=== PATIENT | female | born 1950 | race Caucasian/White ===

== ENCOUNTER → 2017-05-03 13:22 | Outpatient (CLI) | payer BC, SELFPAY ==
--- NOTE | 2017-05-03 13:28 | HPBI_ITS ---
MAMMOGRAPHY - BILATERAL SCREENING REASON FOR EXAM: Female, 67 years old. Routine annual screening examination. PERTINENT HISTORY: Non-contributory. TECHNIQUE: Digital bilateral breast kulwinder (3D mammographic acquisition) in the CC and MLO projections. 2-D mediolateral oblique (MLO) and craniocaudad (CC) views of both breasts were obtained. CAD: Full Field Digital Mammography with Computer Added Detection was performed. COMPARISON: Comparison is made with prior study dated December 23, 2015 and September 02, 2013. FINDINGS: Breast Composition: The breasts are heterogeneously dense, which may obscure small masses. There are no dominant masses or suspicious calcifications. No other significant abnormalities are identified. There has been no significant change since the prior study. HPBI/SCREENING MAMM (CAD), BILAT IMPRESSION: Stable bilateral screening mammogram. Yearly follow-up mammogram recommended. (A) ASSESSMENT CATEGORY: BIRADS Category 1: Negative. A letter regarding these results will be sent to the patient by the facility within 30 days. Approximately 10% of breast cancers are not detected by mammography. A normal mammogram should not delay biopsy of a clinically suspicious abnormality. [id number] Electronically Signed: Dickson Daley MD at 14:13 EST Tel [phone], Service support ,
== END ==
PROVIDERS: Family Provider Family Medicine; PCP Family Medicine; Visit Provider Obstetrics & Gynecology
DX: Z12.31 Encounter for screening mammogram for malignant neoplasm of breast (principal)
CPT/HCPCS: 77063; 77067

== ENCOUNTER → 2017-05-03 14:57 | Outpatient (CLI) | payer BC, SELFPAY ==
[2017-05-07 03:08] LABS: HSV 1 By PCR Negative (Negative)
[2017-05-07 07:17] LABS: HSV 2 By PCR Positive (Negative)
== END ==
PROVIDERS: Visit Provider Obstetrics & Gynecology
DX: N76.6 Ulceration of vulva (principal)
CPT/HCPCS: 87529

== ENCOUNTER → 2017-07-06 16:01 | Outpatient (CLI) | payer BC, SELFPAY ==
[2017-07-06 18:08] LABS: Erythrocyte Sedimentation Rate 15 mm/hr (0-30)
[2017-07-06 18:37] LABS: CRP < 2.90 mg/L (0.0-3.0); Rheumatoid Factor < 10.0 IU/mL (<15)
[2017-07-08 15:32] LABS: ANTINUCLEAR ANTIBODIES DIRECT Positive (Negative)
== END ==
PROVIDERS: Family Provider Family Medicine; PCP Family Medicine; Visit Provider Internal Medicine Pulmonary Disease
DX: R07.9 Chest pain, unspecified (principal)
CPT/HCPCS: 36415; 85652; 86038; 86140; 86431

== ENCOUNTER → 2018-06-02 15:06 | Outpatient (CLI) | payer MEDICARE, BC, SELFPAY ==
--- NOTE | 2018-06-02 15:14 | BI_ITS ---
MAMMOGRAPHY - BILATERAL SCREENING 3-D RUSS SYNTHESIS REASON FOR EXAM: Female, 68 years old. Bilateral Screening 3-D tomosynthesis PERTINENT HISTORY: History of right excisional biopsy in 1983. TECHNIQUE: 2-D mammograms and 3-D Russ synthesis of the breast (s) were performed. CAD was performed. COMPARISON: May 03, 2017, January 02, 2016 FINDINGS: The breast composition is heterogeneously dense that can obscure small breast masses. Scattered benign calcifications are stable. There are stable lymph nodes. No dense spiculated masses or suspicious microcalcifications are identified. No architectural distortion is identified. There is no skin thickening or retraction. There has been no significant change since the prior study. BI/SCREENING MAMM (CAD), BILAT IMPRESSION: No mammographic signs of malignancy. Routine yearly mammograms recommended. ASSESSMENT CATEGORY: BIRADS Category 2: Benign. A letter regarding these results will be sent to the patient by the facility within 30 days. FOLLOW UP RECOMMENDATION: Yearly follow up mammogram recommended. (A) Approximately 10% of breast cancers are not detected by mammography. A normal mammogram should not delay biopsy of a clinically suspicious abnormality. Electronically Signed: Mohinder Warren MD at 17:03 EDT , Service support ,
--- NOTE | 2018-06-02 15:21 | BD_ITS ---
STUDY: DUAL ENERGY X-RAY ABSORPTIOMETRY / DXA REASON FOR EXAM: Female, 68 years old. The patient is postmenopausal. Loss of height. TECHNIQUE: Bone Mineral Density (BMD) measurements of lumbar spine and bilateral hips were obtained. COMPARISON: Comparison is made with prior study dated April 28, 2016. FINDINGS: Lumbar Spine (L1-L4): g/cm2 (0.972) / T-score (-1.7) / Z-score (-0.1) Findings are suggestive of osteopenia with a moderate fracture risk. Increased thoracic kyphosis. Loss of height of the mid dorsal vertebrae. Left Femur Total: g/cm2 (0.847) / T-score (-1.3) / Z-score (0.1) Left Femoral Neck: g/cm2 (0.819) / T-score (-1.6) / Z-score (0.0) Right Femur Total: g/cm2 (0.853) / T-score (-1.2) / Z-score (0.1) Right Femoral Neck: g/cm2 (0.844) / T-score (-1.4) / Z-score (0.2) The T-Scores on the most recent prior examination were: Lumbar Spine (L1-L4): There has been improvement of bone density since the previous examination. Left Femur Total: which represents an improvement of 3.3%. Right Femur Total: which represents an improvement of 6.6%. BD/Dexa Bone Density Study IMPRESSION: The patient is considered osteopenic as outlined below according to World Carlito Organization (WHO) criteria with a moderate fracture risk. There has been improvement of bone density since the previous examination. Reference Information: The T-score is the number of standard deviations above or below the standard which is normal for young adults at their peak bone mineral density. The World Health Organization (WHO) interprets the T-scores as follows: Above -1 Normal bone density Between -1 and -2.5 Osteopenia Equal to / or below -2.5 Osteoporosis As a practical clinical guideline, osteopenia may be graded as follows: Mild -1 through -1.5 Moderate -1.6 through -2.0 Severe -2.1 through -2.4 The Z-score is the number of standard deviations above or below age-matched controls. A Z-score of less than -1.5 would be considered abnormal. References: 1. NIH Osteoporosis and Related Bone Diseases http://www.osteo.org 2. International Society for Clinical Densitometry http://www.iscd.org 3. National Osteoporosis Foundation http://www.nof.org Electronically Signed: Dickson Daley, at 12:57 EDT , Service support ,
== END ==
PROVIDERS: Family Provider Family Medicine; PCP Family Medicine; Visit Provider Family Medicine
DX: M85.80 Other specified disorders of bone density and structure, unspecified site (principal); Z78.0 Asymptomatic menopausal state; Z12.31 Encounter for screening mammogram for malignant neoplasm of breast
CPT/HCPCS: 77063; 77067; 77080

== ENCOUNTER → 2019-08-24 13:48 | Outpatient (CLI) | payer MEDICARE, BC, SELFPAY ==
--- NOTE | 2019-08-24 13:52 | BI_ITS ---
MAMMOGRAPHY - BILATERAL SCREENING REASON FOR EXAM: Female, 69 years old. Routine annual screening examination. PERTINENT HISTORY: Non-contributory. Remote right excisional breast biopsy. TECHNIQUE: Digital bilateral breast russ (3D mammographic acquisition) in the CC and MLO projections. 2-D mediolateral oblique (MLO) and craniocaudad (CC) views of both breasts were obtained. CAD: Full Field Digital Mammography with Computer Added Detection was performed. COMPARISON: Comparison is made with prior study date June 02, 2018 and May 03, 2017. FINDINGS: Breast Composition: The breasts are extremely dense, which lowers the sensitivity of mammography. There are no dominant masses or suspicious calcifications. No other significant abnormalities are identified. There has been no significant change since the prior study. BI/SCREEN MAMM (CAD) W/RUSS BILAT IMPRESSION: Stable bilateral screening mammogram. Yearly follow-up mammogram recommended. (A) ASSESSMENT CATEGORY: BIRADS Category 1: Negative. A letter regarding these results will be sent to the patient by the facility within 30 days. Approximately 10% of breast cancers are not detected by mammography. A normal mammogram should not delay biopsy of a clinically suspicious abnormality. [id number] Electronically Signed: Dickson Daley, at 15:06 EDT , Service support ,
== END ==
PROVIDERS: PCP Family Medicine; Referring Provider Obstetrics & Gynecology; Visit Provider Obstetrics & Gynecology
DX: Z12.31 Encounter for screening mammogram for malignant neoplasm of breast (principal)
CPT/HCPCS: 77063; 77067

== ENCOUNTER → 2019-11-02 17:02 | Outpatient (CLI) | payer MEDICARE, BC, SELFPAY ==
[2019-11-08 20:30] LABS: HPV APTIMA, High Risk Positive (Negative); HPV Reflexed? YES, CHARGE PATIENT
== END ==
PROVIDERS: PCP Family Medicine; Referring Provider Student in an Organized Health Care Education/Training Program; Visit Provider Student in an Organized Health Care Education/Training Program
DX: Z12.4 Encounter for screening for malignant neoplasm of cervix (principal)
CPT/HCPCS: 87624; 88175; G0145

== ENCOUNTER → 2019-12-11 15:03 | Outpatient (CLI) | payer MEDICARE, BC, SELFPAY ==
--- NOTE | 2019-12-11 | IMM_PTH ---
PATIENT: ASHISH COPELAND LOC: [facility] U#:[id number] AGE/SX: 74/F ROOM: RE12/11/[address]: Dr. Loida Fleming DO : 1950 BED: DIS: SPEC #: [id number] RECD: 12/13/19 13:20 STATUS: KD REQ #: [id number] SHIREEN: 12/11/19 00:[address]: Loida Fleming DEPT: IMMUNOHISTOCHEMISTRY RECD BY: Amanda Briceno ENTERED: 12/13/19 13:21 SP TYPE: IMMUNO OTHR DR: Dr. Jose Joy MD Tissues: A - Uterine cervix, NOS B - Endocervical Procedures: p16 (initial) KI-67 (add) PHYSICIAN & [place] [phone] SPECIMEN INFORMATION: Tissue Source: A - Cervical biopsy 11 o'clock, B - [facility] Clinical Info: ASCUS Specimen Number: [id number] A & B CPT code: 90356 x2, 28582 x2 METHODOLOGY: Deparaffinized sections of prefer/formalin-fixed tissue or PAP/DQ stained slides are incubated with monoclonal/polyclonal antibodies/oligonucleotide probes. Localization is made via biotin free immunoperoxidase method. Appropriate controls are performed and reacted as expected. Results on target cell population are indicated in the following table: RESULTS: ANTIBODY / CLONE RESULT Block A P16 (E6H4) positive, rare Ki-67 (30-9) negative Block B P16 (E6H4) positive, rare Ki-67 (30-9) negative These tests were developed and their performance characteristics determined by [facility]. They may not have been cleared or approved by the U.S. Food and Drug Administration. The FDA has determined that such clearance or approval is not necessary. The above immunohistochemical/dualISH markers are ordered and reviewed by the Pathologist. INTERPRETATION: A. Cervix at 11 o'clock, biopsy: Focal HPV change suspected. B. Endocervix, curettage: Focal HPV change suspected. AM:zak 12/14/19
--- NOTE | 2019-12-11 14:35 | CER_PTH ---
PATIENT: ASHISH COPELAND [facility] U#:[id number] AGE/SX: 74/F ROOM: RE12/11/[address]: Dr. Loida Fleming DO : 1950 BED: DIS: SPEC #: [id number] RECD: 12/11/19 16:25 STATUS: KD PA #: [id number] SHIREEN: 12/11/19 14:[address]: Loida Fleming DEPT: SURGICAL PATHOLOGY RECD BY: Leah Burleson ENTERED: 12/12/19 09:21 SP TYPE: CERV OTHR DR: Dr. Jose Joy MD Tissues: A - Uterine cervix, NOS B - Endocervical Procedures: Surgery Specimen Level IV HEADER OPERATION: Colposcopy PRE-OP DIAGNOSIS: ASCUS; cannot exclude HGSIL TISSUE SUBMITTED: A - Cervical biopsy 11 o'clock, B - ECC MICROSCOPIC DIAGNOSIS A. Cervix at 11 o'clock, biopsy: Minimal chronic inflammation. Focal HPV change suspected. See comment. B. Endocervix, curettings: Scant strips of benign squamous mucosa. Focal HPV change suspected. See comment. AM:zak 12/13/19 COMMENT A & B. Results from immunohistochemistry ([id number]) for surrogate HPV marker (p16) will be reported separately. MICROSCOPIC DESCRIPTION Slides are reviewed. GROSS DESCRIPTION A - Received in fixative is one container labeled with the patient's name and designated cervical biopsy. The specimen consists of one irregular fragment of light miller soft tissue that measures 0.2 x 0.2 x 0.1 cm. The specimen is totally submitted in one cassette. B - Received in fixative is one container labeled with the patient's name and designated ECC. The specimen consists of a scant amount of soft tissue. The specimen is totally submitted for cell block preparation. / AM:zak 12/12/19 TC:5 CPT: 57712 x2
== END ==
PROVIDERS: PCP Family Medicine; Visit Provider Student in an Organized Health Care Education/Training Program
DX: R30.0 Dysuria (principal); R89.7 Abnormal histological findings in specimens from other organs, systems and tissues
CPT/HCPCS: 87086; 87088; 88305; 88341; 88342

== ENCOUNTER 2021-03-25 11:39 | Outpatient (CLI) | payer MEDICARE, BC, SELFPAY ==
[2021-03-28 22:06] LABS: HPV Genotype 16, Aptima Negative (Negative)
[2021-03-29 16:11] LABS: HPV APTIMA, High Risk Positive (Negative); HPV Genotype 18,45 Aptima Negative (Negative)
== END 2021-03-25 23:59 | disposition short-term general hospital (02) ==
LOC: LABSPEC 11:42
PROVIDERS: PCP Student in an Organized Health Care Education/Training Program; Visit Provider Student in an Organized Health Care Education/Training Program
DX: Z12.4 Encounter for screening for malignant neoplasm of cervix (principal)
CPT/HCPCS: 87624; 88175; G0145

== ENCOUNTER 2021-03-27 14:11 | Outpatient (CLI) | payer MEDICARE, BC, SELFPAY ==
--- NOTE | 2021-03-27 14:17 | BI_ITS ---
MAMMOGRAPHY - BILATERAL SCREENING REASON FOR EXAM: Female, 70 years old. Routine annual screening examination. PERTINENT HISTORY: Non-contributory. Remote right excisional breast biopsy. TECHNIQUE: Digital bilateral breast russ (3D mammographic acquisition) in the CC and MLO projections. 2-D mediolateral oblique (MLO) and craniocaudad (CC) views of both breasts were obtained. CAD: Full Field Digital Mammography with Computer Added Detection was performed. COMPARISON: Comparison is made with prior study dated 08/24/2019 and 06/02/2018. FINDINGS: Breast Composition: The breasts are extremely dense, which lowers the sensitivity of mammography. There are no dominant masses or suspicious calcifications. No other significant abnormalities are identified. There has been no significant change since the prior study. BI/SCRN MAMM (CAD)W/RUSS BILAT IMPRESSION: Stable bilateral screening mammogram. Yearly follow-up mammogram recommended. (A) ASSESSMENT CATEGORY: BIRADS Category 1: Negative. A letter regarding these results will be sent to the patient by the facility within 30 days. Approximately 10% of breast cancers are not detected by mammography. A normal mammogram should not delay biopsy of a clinically suspicious abnormality. [id number] Electronically Signed: Dickson Daley MD at 15:14 EST , Service support ,
== END 2021-03-27 23:59 | disposition short-term general hospital (02) ==
LOC: OPBD 14:13
PROVIDERS: PCP Student in an Organized Health Care Education/Training Program; Referring Provider Student in an Organized Health Care Education/Training Program; Visit Provider Student in an Organized Health Care Education/Training Program
DX: Z12.31 Encounter for screening mammogram for malignant neoplasm of breast (principal)
CPT/HCPCS: 77063; 77067

== ENCOUNTER 2021-04-03 13:39 | Outpatient (CLI) | payer MEDICARE, BC, SELFPAY ==
--- NOTE | 2021-04-03 14:00 | BD_ITS ---
STUDY: DUAL ENERGY X-RAY ABSORPTIOMETRY / DXA REASON FOR EXAM: Female, 71 years old. M810. Patient is postmenopausal. TECHNIQUE: Bone Mineral Density (BMD) measurements of lumbar spine and bilateral hips were obtained. COMPARISON: Comparison is made with prior study dated 06/02/2018. FINDINGS: Lumbar Spine (L1-L4): g/cm2 (0.855) / T-score (-1.7) / Z-score (0.4) Findings are suggestive of osteopenia with a moderate fracture risk. Left Femur Total: g/cm2 (0.786) / T-score (-1.3) / Z-score (0.3) Left Femoral Neck: g/cm2 (0.678) / T-score (-1.5) / Z-score (0.3) Right Femur Total: g/cm2 (0.812) / T-score (-1.1) / Z-score (0.5) Right Femoral Neck: g/cm2 (0.711) / T-score (-1.2) / Z-score (0.6) The T-Scores on the most recent prior examination were: Lumbar Spine (L1-L4): There has been no change of bone density since the previous examination. Left Femur Total: which represents an improvement of 0.1%. Right Femur Total: which represents an improvement of 2.6%. BD/Dexa Bone Density Study IMPRESSION: The patient is considered osteopenic as outlined below according to World Carlito Organization (WHO) criteria with a moderate fracture risk. There has been improvement of bone density since the previous examination. Reference Information: The T-score is the number of standard deviations above or below the standard which is normal for young adults at their peak bone mineral density. The World Health Organization (WHO) interprets the T-scores as follows: Above -1 Normal bone density Between -1 and -2.5 Osteopenia Equal to / or below -2.5 Osteoporosis As a practical clinical guideline, osteopenia may be graded as follows: Mild -1 through -1.5 Moderate -1.6 through -2.0 Severe -2.1 through -2.4 The Z-score is the number of standard deviations above or below age-matched controls. A Z-score of less than -1.5 would be considered abnormal. References: 1. NIH Osteoporosis and Related Bone Diseases www osteo.org 2. International Society for Clinical Densitometry www iscd.org 3. National Osteoporosis Foundation www nof.org Electronically Signed: Dickson Daley MD at 14:49 EST , Service support ,
== END 2021-04-03 23:59 | disposition short-term general hospital (02) ==
LOC: OPBD 13:39
PROVIDERS: PCP Student in an Organized Health Care Education/Training Program; Visit Provider Student in an Organized Health Care Education/Training Program
DX: Z13.820 Encounter for screening for osteoporosis (principal); Z78.0 Asymptomatic menopausal state
CPT/HCPCS: 77080

== ENCOUNTER 2021-04-22 16:25 | Outpatient (CLI) | payer MEDICARE, BC, SELFPAY ==
--- NOTE | 2021-04-22 | CER_PTH ---
PATIENT: ASHISH COPELAND LOC: [facility]#:[id number] AGE/SX: 71/F ROOM: RE04/22/[address]: Dr. Loida Fleming DO : 1950 BED: DIS: 04/22/2021 SPEC #: [id number] RECD: 04/22/21 17:12 STATUS: KD RECrista #: [id number] SHIREEN: 04/22/21 00:[address]: Loida Fleming DEPT: SURGICAL PATHOLOGY RECD BY: Maribel Ecsobedo ENTERED: 04/23/21 08:38 SP TYPE: CERV OTHR DR: Dr. Jay Jaramillo DO Tissues: A - Uterine cervix, NOS B - Endocervical Procedures: Surgery Specimen Level IV HEADER OPERATION: Colposcopy PRE-OP DIAGNOSIS: HPV positive TISSUE SUBMITTED: A ? Cervical biopsy 2, 4, 8, 10 o?clock, B - ECC MICROSCOPIC DIAGNOSIS A. Cervix, 2, 4, 8 and 10 o?clock, biopsy: Fragments of squamous mucosa with focal changes consistent with HPV cytopathic effects. See comment. B. ECC: Scant fragments of squamous epithelium, negative for dysplasia. See comment. SENA:zak 04/24/2021 COMMENT A & B. Immunohistochemistry ([id number]) for surrogate HPV marker (p16) supports the above diagnosis. MICROSCOPIC DESCRIPTION Slides are reviewed. GROSS DESCRIPTION A - Received in fixative is one container labeled with the patient's name and designated cervical biopsy 2, 4, 8 and 10 o'clock. The specimen consists of multiple irregular fragments of light miller soft tissue that in aggregate measure 0.5 x 0.5 x 0.1 cm. The specimen is totally submitted in one cassette. B - Received in fixative is one container labeled with the patient's name and designated ECC. The specimen consists of a scant amount of soft tissue. The specimen is totally submitted for cell block preparation. / SENA:zak 04/23/2021 TC:5 CPT: 47208 x2
--- NOTE | 2021-04-22 | IMM_PTH ---
PATIENT: ASHISH COPELAND LOC: [facility] U#:[id number] AGE/SX: 71/F ROOM: RE04/22/[address]: Dr. Loida Fleming DO : 1950 BED: DIS: 04/22/2021 SPEC #: [id number] RECD: 04/24/21 13:47 STATUS: KD REQ #: [id number] SHIREEN: 04/22/21 00:[address]: Loida Fleming DEPT: IMMUNOHISTOCHEMISTRY RECD BY: Amanda Briceno ENTERED: 04/24/21 13:48 SP TYPE: IMMUNO OTHR DR: Dr. Jay Jaramillo DO Tissues: A - Uterine cervix, NOS B - Endocervical Procedures: p16 (initial) KI-67 (add) PHYSICIAN & INSTITUTION [place] [phone] SPECIMEN INFORMATION: Tissue Source: A ? Cervix at 2, 4, 8 and 10 o?clock, B - [facility] Clinical Info: HPV positive Specimen Number: [id number] A & B CPT code: 00652 x2, 14857 x2 METHODOLOGY: Deparaffinized sections of prefer/formalin-fixed tissue or PAP/DQ stained slides are incubated with monoclonal/polyclonal antibodies/oligonucleotide probes. Localization is made via biotin free immunoperoxidase method. Appropriate controls are performed and reacted as expected. Results on target cell population are indicated in the following table: RESULTS: ANTIBODY / CLONE RESULT Block A P16 (E6H4) positive, focal and patchy Ki-67 (30-9) positive, very low Block B P16 (E6H4) negative Ki-67 (30-9) positive, very low These tests were developed and their performance characteristics determined by [facility]. They may not have been cleared or approved by the U.S. Food and Drug Administration. The FDA has determined that such clearance or approval is not necessary. The above immunohistochemical/dualISH markers are ordered and reviewed by the Pathologist. INTERPRETATION: A. Cervix at 2, 4, 8 and 10 o?clock, biopsy: Focal changes consistent with HPV cytopathic effects. B. ECC: Negative for dysplasia. SENA:zak 04/25/2021
== END 2021-04-22 23:59 | disposition home or self-care (01) ==
PROVIDERS: PCP Student in an Organized Health Care Education/Training Program; Visit Provider Student in an Organized Health Care Education/Training Program
DX: R87.821 Vaginal low risk human papillomavirus (HPV) DNA test positive (principal)
CPT/HCPCS: 88305; 88341; 88342

== ENCOUNTER → 2021-12-15 | Outpatient (CLI) | payer MEDICARE, BC, SELFPAY ==
[2021-12-24 11:23] LABS: HPV APTIMA, High Risk Negative (Negative)
== END | disposition home or self-care (01) ==
PROVIDERS: PCP Student in an Organized Health Care Education/Training Program; Visit Provider Student in an Organized Health Care Education/Training Program
DX: R87.810 Cervical high risk human papillomavirus (HPV) DNA test positive (principal); Z12.4 Encounter for screening for malignant neoplasm of cervix
CPT/HCPCS: 87624; 88175; G0145

== ENCOUNTER → 2022-04-07 | Outpatient (CLI) | payer MEDICARE, BC, SELFPAY ==
--- NOTE | 2022-04-07 13:36 | BI_ITS ---
MAMMOGRAPHY - BILATERAL SCREENING REASON FOR EXAM: Female, 72 years old. Routine annual screening examination. PERTINENT HISTORY: Non-contributory. Remote right excisional breast biopsy. TECHNIQUE: Digital bilateral breast russ (3D mammographic acquisition) in the CC and MLO projections. 2-D mediolateral oblique (MLO) and craniocaudad (CC) views of both breasts were obtained. CAD: Full Field Digital Mammography with Computer Added Detection was performed. COMPARISON: Comparison is made with prior examination dated 03/27/2021 and 08/24/2019. FINDINGS: Breast Composition: The breasts are extremely dense, which lowers the sensitivity of mammography. There are no dominant masses or suspicious calcifications. No other significant abnormalities are identified. There has been no significant change since the prior study. BI/SCRN MAMM (CAD)W/RUSS BILAT IMPRESSION: Stable bilateral screening mammogram. Yearly follow-up mammogram recommended. (A) ASSESSMENT CATEGORY: BIRADS Category 1: Negative. A letter regarding these results will be sent to the patient by the facility within 30 days. Approximately 10% of breast cancers are not detected by mammography. A normal mammogram should not delay biopsy of a clinically suspicious abnormality. [id number] Electronically Signed: Dickson Daley MD at 14:35 EST ,
== END | disposition home or self-care (01) ==
LOC: OPBI 13:33
PROVIDERS: PCP Student in an Organized Health Care Education/Training Program; Referring Provider Student in an Organized Health Care Education/Training Program; Visit Provider Student in an Organized Health Care Education/Training Program
DX: Z12.31 Encounter for screening mammogram for malignant neoplasm of breast (principal)
CPT/HCPCS: 77063; 77067

== ENCOUNTER → 2023-06-08 | Outpatient (CLI) | payer MEDICARE, BC, SELFPAY ==
--- NOTE | 2023-06-08 12:16 | BI_ITS ---
MAMMOGRAPHY - BILATERAL SCREENING REASON FOR EXAM: Female, 73 years old. Routine annual screening examination. PERTINENT HISTORY: Non-contributory. TECHNIQUE: Digital bilateral breast russ (3D mammographic acquisition) in the CC and MLO projections. 2-D mediolateral oblique (MLO) and craniocaudad (CC) views of both breasts were obtained. CAD: Full Field Digital Mammography with Computer Added Detection was performed. COMPARISON: Comparison is made with prior study dated April 07, 2022 and March 27, 2021. FINDINGS: Breast Composition: The breasts are extremely dense, which lowers the sensitivity of mammography. There are no dominant masses or suspicious calcifications. No other significant abnormalities are identified. There has been no significant change since the prior study. BI/SCRN MAMM (CAD)W/RUSS BILAT IMPRESSION: Stable bilateral screening mammogram. Yearly follow-up mammogram recommended. (A) ASSESSMENT CATEGORY: BIRADS Category 1: Negative. A letter regarding these results will be sent to the patient by the facility within 30 days. Approximately 10% of breast cancers are not detected by mammography. A normal mammogram should not delay biopsy of a clinically suspicious abnormality. [id number] Electronically Signed: Dickson Daley MD at 14:02 EDT ,
--- NOTE | 2023-06-08 12:16 | BD_ITS ---
STUDY: DUAL ENERGY X-RAY ABSORPTIOMETRY / DXA REASON FOR EXAM: Female, 73 years old. Z780 TECHNIQUE: Bone Mineral Density (BMD) measurements of lumbar spine and bilateral hips were obtained. COMPARISON: Comparison is made with prior study dated . FINDINGS: Lumbar Spine (L1-L4): g/cm2 (0.818) / T-score (-2.4) / Z-score (0.0) Findings are suggestive of osteopenia with a high fracture risk. Left Femur Total: g/cm2 (0.766) / T-score (-1.4) / Z-score (0.2) Left Femoral Neck: g/cm2 (0.623) / T-score (-2.0) / Z-score (-0.1) Right Femur Total: g/cm2 (0.815) / T-score (-1.0) / Z-score (0.6) Right Femoral Neck: g/cm2 (0.756) / T-score (-0.8) / Z-score (1.1) The T-Scores on the most recent prior examination were: Lumbar Spine (L1-L4): There has been worsening of bone density since the previous examination. Left Femur Total: which represents a worsening of 2.6%. Right Femur Total: which represents an improvement of 0.4%. BD/Dexa Bone Density Study IMPRESSION: The patient is considered osteopenic as outlined below according to World Carlito Organization (WHO) criteria with a high fracture risk. There has been worsening of bone density since the previous examination. Reference Information: The T-score is the number of standard deviations above or below the standard which is normal for young adults at their peak bone mineral density. The World Health Organization (WHO) interprets the T-scores as follows: Above -1 Normal bone density Between -1 and -2.5 Osteopenia Equal to / or below -2.5 Osteoporosis As a practical clinical guideline, osteopenia may be graded as follows: Mild -1 through -1.5 Moderate -1.6 through -2.0 Severe -2.1 through -2.4 The Z-score is the number of standard deviations above or below age-matched controls. A Z-score of less than -1.5 would be considered abnormal. References: 1. NIH Osteoporosis and Related Bone Diseases www osteo.org 2. International Society for Clinical Densitometry www iscd.org 3. National Osteoporosis Foundation www nof.org Electronically Signed: Dickson Daley MD at 9:49 EDT ,
== END | disposition home or self-care (01) ==
LOC: OPBD 12:14
PROVIDERS: PCP Student in an Organized Health Care Education/Training Program; Referring Provider Student in an Organized Health Care Education/Training Program; Visit Provider Student in an Organized Health Care Education/Training Program
DX: Z12.31 Encounter for screening mammogram for malignant neoplasm of breast (principal); M81.0 Age-related osteoporosis without current pathological fracture
CPT/HCPCS: 77063; 77067; 77080

== ENCOUNTER → 2024-06-09 | Outpatient (CLI) | payer MEDICARE, BC, SELFPAY ==
--- NOTE | 2024-06-09 10:43 | BI_ITS ---
EXAM: SCRN MAMM (CAD)W/RUSS BILAT 06/09/2024 CLINICAL HISTORY: F, Age 74 y/o , SCREENING TECHNIQUE: Bilateral screening digital breast tomosynthesis with 2D and 3D images. Computer aided detection. COMPARISON: Prior exam(s) dated 06/08/2023, 04/07/2022. FINDINGS: TISSUE DENSITY: The breast tissue is heterogenously dense, which may obscure small masses. The mammogram demonstrates that the patient has dense breasts. Supplemental screening with whole breast ultrasound or MRI may be considered for further evaluation. Bilateral Breast Mammographic Findings: No significant masses, calcifications or other abnormalities are identified. BI/SCRN MAMM (CAD)W/RUSS BILAT IMPRESSION: Right Breast: BIRADS 1 NEGATIVE. Left Breast: BIRADS 1 NEGATIVE. OVERALL FINAL ASSESSMENT: BIRADS 1 NEGATIVE. RECOMMENDATION: Routine annual follow-up in 1 Year A letter with findings and recommendations will be mailed to the patient. Reading Location: [id number]
== END | disposition home or self-care (01) ==
LOC: OPBI 10:41
PROVIDERS: PCP Student in an Organized Health Care Education/Training Program; Referring Provider Obstetrics & Gynecology Gynecology; Visit Provider Obstetrics & Gynecology Gynecology
DX: Z01.419 Encounter for gynecological examination (general) (routine) without abnormal findings (principal); Z12.31 Encounter for screening mammogram for malignant neoplasm of breast
CPT/HCPCS: 77063; 77067